=== PATIENT | male | born 1990 | race Hispanic/Latino ===

== ENCOUNTER 2021-11-16 00:04 | Inpatient (IN) | payer SELFPAY ==
[2021-11-16] MEDS ORDERED: CEFAZOLIN 2 GM VIAL ONE (00:15)
[2021-11-16] MEDS ORDERED: Boostrix 0.5 ML (Tdap) VIAL (>/=7 yrs of age) ONE (00:15)
[2021-11-16 01:11] LABS: #Lymphocytes 1.1 thou/uL (1.20-3.40); #Neutrophils 15.1 thou/uL (1.40-6.50); %Basophils 0.1 % (0.0-1.0); %Eosinophils 0.1 % (0.0-10.0); %Lymphocytes 6.5 % (21.0-51.0); %Monocytes 5.9 % (0.0-10.0); %Neutrophils 87.4 % (42.0-75.0); Hemoglobin 16.4 g/dL (14.0-18.0); Mean Corpuscular HGB CONC 33.9 g/dL (32.0-36.0); Mean Corpuscular Hemoglobin 31.5 pg (27.0-31.0); Mean Corpuscular Volume 93.1 fL (78.0-98.0); Mean Platelet Volume 7.8 fL (7.4-10.4); Platelet Count 243 thou/uL (130-400); RBC Distribution Width 11.4 % (11.5-14.5); Red Blood Cell (RBC) Count 5.21 mill/uL (4.70-6.10); White Blood Cell (WBC) Count 17.3 thou/uL (4.8-10.8)
[2021-11-16] MEDS ORDERED: Ondansetron PF 4 MG/2 ML Vial IVP PRN (01:13)
[2021-11-16] MEDS ORDERED: Dextrose 5% in Water 1,000 ML IV PRN (01:13)
[2021-11-16] MEDS ORDERED: Ondansetron ODT 4 MG TAB PO PRN (01:13)
[2021-11-16] MEDS ORDERED: Dextrose 50% Abboject 50 ML SYRINGE SLOW IVP PRN (01:13)
[2021-11-16] MEDS ORDERED: hydrALAZINE 20 MG/ML VIAL SLOW IVP PRN (01:13)
[2021-11-16] MEDS ORDERED: TETANUS, DIPHTHERIA TOX,ADULT (TDVAX) 0.5 ML VIAL IM ONE (01:13)
[2021-11-16] MEDS ORDERED: Morphine 4 MG/ML VIAL SLOW IVP PRN ×2 (01:13→18:35)
[2021-11-16 01:14] LABS: PTT 25.4 sec (22.9-36.1); Prothrombin Time 13.6 sec (12.0-14.7)
[2021-11-16 01:29] LABS: ALT (SGPT) 24 U/L (8-55); AST (SGOT) 32 U/L (5-34); Albumin 4.7 g/dL (3.5-5.0); Alkaline Phosphatase 81 U/L (40-110); Anion Gap 17 mmol/L (10-20); BUN (Urea Nitrogen) 14 mg/dL (8.9-20.6); Bilirubin, Total 0.8 mg/dL (0.2-1.2); Calc. Creatinine Clearance 0 mL/min (70-130); Calcium 9.1 mg/dL (7.8-10.44); Carbon Dioxide 18 mmol/L (22-29); Chloride 105 mmol/L (98-107); Estimated GFR 107; Glucose 138 mg/dL (70-105); Potassium 4.3 mmol/L (3.5-5.1); Protein, Total 7.7 g/dL (6.0-8.3); Sodium 136 mmol/L (136-145)
[2021-11-16 01:35] LABS: Alcohol Less than 10 mg/dL (Less than 10); Magnesium 1.9 mg/dL (1.6-2.6)
[2021-11-16] MEDS ORDERED: Sodium Chloride 0.9% 1,000 ML IV SCH (02:00)
[2021-11-16 03:20] LABS: Amphetamine Not Detected (NotDetected); Barbiturates Screen Not Detected (NotDetected); Benzodiazepine Screen Not Detected (NotDetected); Cocaine Metabolite Screen Not Detected (NotDetected); Methadone Not Detected (NotDetected); Methamphetamine Not Detected (NotDetected); Opiate Screen Not Detected (NotDetected); Oxycodone Screen Not Detected (NotDetected); Phencyclidine (PCP) Not Detected (NotDetected); THC/Cannabinoid Screen Not Detected (NotDetected); Tricyclic Screen Not Detected (NotDetected)
[2021-11-16] MEDS: Morphine 4 MG/ML VIAL SLOW IVP PRN ×3 (03:45→12:21)
[2021-11-16] MEDS: Acetaminophen 500 MG TAB PO SCH ×4 (05:37→19:59)
[2021-11-16 07:21] LABS: #Lymphocytes 1.6 thou/uL (1.20-3.40); #Monocytes 1.2 thou/uL (0.11-0.59); #Neutrophils 11.4 thou/uL (1.40-6.50); %Eosinophils 0.1 % (0.0-10.0); %Monocytes 8.6 % (0.0-10.0); %Neutrophils 80.3 % (42.0-75.0); Hemoglobin 15.4 g/dL (14.0-18.0); Mean Corpuscular HGB CONC 33.5 g/dL (32.0-36.0); Mean Corpuscular Hemoglobin 31.4 pg (27.0-31.0); Mean Corpuscular Volume 93.7 fL (78.0-98.0); Mean Platelet Volume 7.3 fL (7.4-10.4); Platelet Count 241 thou/uL (130-400); RBC Distribution Width 11.4 % (11.5-14.5); White Blood Cell (WBC) Count 14.2 thou/uL (4.8-10.8)
[2021-11-16 07:44] LABS: Anion Gap 13 mmol/L (10-20); BUN (Urea Nitrogen) 13 mg/dL (8.9-20.6); Calc. Creatinine Clearance 154 mL/min (70-130); Calcium 8.8 mg/dL (7.8-10.44); Carbon Dioxide 21 mmol/L (22-29); Chloride 106 mmol/L (98-107); Estimated GFR 121; Glucose 124 mg/dL (70-105); Magnesium 2.1 mg/dL (1.6-2.6); Potassium 4.1 mmol/L (3.5-5.1); Sodium 136 mmol/L (136-145)
[2021-11-16] MEDS: Famotidine/PF 20 mg/2ml Vial SLOW IVP SCH ×2 (09:11→19:41)
[2021-11-16] MEDS: Senokot S 8.6-50 MG TAB PO SCH ×2 (09:11→19:43)
[2021-11-16] MEDS: Polyethylene Glycol 3350 17 GM Packet PO SCH ×2 (09:11→09:15)
[2021-11-16] MEDS ORDERED: Oxazepam 10 MG CAP PO SCH (12:45)
[2021-11-16] MEDS ORDERED: Labetalol HCl 100 MG/20 ML VIAL ONE (13:14)
[2021-11-16] MEDS: Oxazepam 10 MG CAP PO SCH ×2 (13:19→21:49)
[2021-11-16] MEDS: Labetalol HCl 100 MG/20 ML VIAL SLOW IVP PRN ×2 (13:20→17:32)
[2021-11-16] MEDS: Metoprolol Tartrate 25 MG TAB PO SCH (19:41)
[2021-11-16] MEDS: levETIRAcetam 500 MG TAB PO SCH (19:41)
[2021-11-16] MEDS: Acetaminophen/Codeine 30-300mg Tablet PO SCH (19:42)
[2021-11-17] MEDS: Acetaminophen 500 MG TAB PO SCH ×4 (02:00→20:54)
[2021-11-17] MEDS: Acetaminophen/Codeine 30-300mg Tablet PO SCH ×4 (02:56→17:47)
[2021-11-17 04:32] LABS: #Lymphocytes 1.7 thou/uL (1.20-3.40); #Monocytes 0.9 thou/uL (0.11-0.59); #Neutrophils 9.6 thou/uL (1.40-6.50); %Basophils 0.2 % (0.0-1.0); %Eosinophils 0.3 % (0.0-10.0); %Lymphocytes 13.7 % (21.0-51.0); %Monocytes 7.3 % (0.0-10.0); %Neutrophils 78.5 % (42.0-75.0); Hemoglobin 16.6 g/dL (14.0-18.0); Mean Corpuscular HGB CONC 33.5 g/dL (32.0-36.0); Mean Corpuscular Hemoglobin 31.7 pg (27.0-31.0); Mean Corpuscular Volume 94.7 fL (78.0-98.0); Mean Platelet Volume 7.7 fL (7.4-10.4); Platelet Count 226 thou/uL (130-400); RBC Distribution Width 11.6 % (11.5-14.5); Red Blood Cell (RBC) Count 5.24 mill/uL (4.70-6.10); White Blood Cell (WBC) Count 12.3 thou/uL (4.8-10.8)
[2021-11-17 04:56] LABS: Anion Gap 13 mmol/L (10-20); BUN (Urea Nitrogen) 11 mg/dL (8.9-20.6); Calc. Creatinine Clearance 145 mL/min (70-130); Calcium 9.4 mg/dL (7.8-10.44); Carbon Dioxide 26 mmol/L (22-29); Chloride 102 mmol/L (98-107); Estimated GFR 119; Glucose 116 mg/dL (70-105); Magnesium 2.2 mg/dL (1.6-2.6); Potassium 3.8 mmol/L (3.5-5.1); Sodium 137 mmol/L (136-145)
[2021-11-17] MEDS: Oxazepam 10 MG CAP PO SCH ×2 (05:19→07:23)
[2021-11-17 05:41] VITALS: BMI 28.3
[2021-11-17] MEDS: levETIRAcetam 500 MG TAB PO SCH ×2 (07:18→20:55)
[2021-11-17] MEDS: Multivitamin W/ Minerals 1 TAB PO SCH (07:21)
[2021-11-17] MEDS: Senokot S 8.6-50 MG TAB PO SCH ×2 (07:21→20:54)
[2021-11-17] MEDS: Metoprolol Tartrate 25 MG TAB PO SCH ×2 (07:22→20:55)
[2021-11-17] MEDS: Thiamine 100 MG TAB PO SCH (07:23)
[2021-11-17] MEDS: Folic Acid 1 MG TAB PO SCH (07:23)
[2021-11-17] MEDS: Acetaminophen/Codeine 30-300mg Tablet PO PRN ×2 (15:19→22:14)
[2021-11-18] MEDS: Acetaminophen/Codeine 30-300mg Tablet PO SCH ×4 (00:04→17:55)
[2021-11-18] MEDS: Acetaminophen 500 MG TAB PO SCH ×4 (02:52→15:01)
[2021-11-18] MEDS: Thiamine 100 MG TAB PO SCH (08:39)
[2021-11-18] MEDS: Metoprolol Tartrate 25 MG TAB PO SCH (08:39)
[2021-11-18] MEDS: Senokot S 8.6-50 MG TAB PO SCH (08:39)
[2021-11-18] MEDS: Multivitamin W/ Minerals 1 TAB PO SCH (08:39)
[2021-11-18] MEDS: Polyethylene Glycol 3350 17 GM Packet PO SCH (08:39)
[2021-11-18] MEDS: Folic Acid 1 MG TAB PO SCH (08:39)
[2021-11-18] MEDS: levETIRAcetam 500 MG TAB PO SCH (08:39)
[2021-11-18] MEDS: Acetaminophen/Codeine 30-300mg Tablet PO PRN (15:00)
[2021-11-18 15:49] VITALS: BP 156/89; TEMP 98.2
== END 2021-11-18 18:30 | disposition home or self-care (01) | DRG 964 ==
LOC: ERS 00:04 → CCU 01:19 → SURG A 11-17 15:13
PROVIDERS: ADMIT Surgery; ATTEND Surgery
DX: S06.6X9A Traumatic subarachnoid hemorrhage with loss of consciousness of unspecified duration, initial encounter (principal); S12.100A Unspecified displaced fracture of second cervical vertebra, initial encounter for closed fracture; S27.321A Contusion of lung, unilateral, initial encounter; S22.31XA Fracture of one rib, right side, initial encounter for closed fracture; I10 Essential (primary) hypertension; S02.0XXA Fracture of vault of skull, initial encounter for closed fracture; S02.842A Fracture of lateral orbital wall, left side, initial encounter for closed fracture; S02.40FA Zygomatic fracture, left side, initial encounter for closed fracture; S02.40DA Maxillary fracture, left side, initial encounter for closed fracture; M43.16 Spondylolisthesis, lumbar region; V86.56XA Driver of dirt bike or motor/cross bike injured in nontraffic accident, initial encounter; Y92.9 Unspecified place or not applicable
CPT/HCPCS: 36415; 36416; 70450; 80048; 80053; 80306; 80307; 83735; 84100; 85025; 85610; 85730; 90715; 93005; J0360; J0690; J2270; J2405; J7030; J7050; S0028

== ENCOUNTER 2022-01-28 12:23 | Outpatient (CLI) | payer OTHER | END 2022-01-28 12:24 | disposition home or self-care (01) | LOC: TBSIIMAG 12:23 | PROVIDERS: ATTEND Neurological Surgery | DX: S12.100D Unspecified displaced fracture of second cervical vertebra, subsequent encounter for fracture with routine healing (principal) | CPT/HCPCS: 72050 ==